=== PATIENT | male | born 1965 | race Caucasian/White ===

== ENCOUNTER 2024-12-19 08:15 | Outpatient (AMB) | payer OTHER, SELFPAY ==
--- NOTE | 2024-12-19 08:28 | A.OFFPC_ITS ---
Vital Signs 12/19/24 08:36 Height 5 ft 9 in Weight 79.832 kg BMI 26.0 BP 130/72 Blood Pressure Location Lt brachial Position Sitting Respiration 16 Pulse 76 Pulse Source Pulse Oximeter Temp 97.1 F Temp Source Temporal Artery Scan Pulse Oximetry (%) 95 Oxygen Delivery Method Room Air Intake Visit Reasons: both hands, cuts, peeling, swelling - see comments Patient Coordinator Required: No Accompanied by: Self / Same As Patient Allergies No Known Allergies Allergy (Verified 12/19/24 08:29) Medication List - Last Reconciled 12/19/24 by SOHAIL Avelar betamethasone valerate 0.1% 1 appl topical BID PRN loratadine (Allergy Relief (loratadine)) 10 mg PO DAILY prednisone 10 mg PO DIRECTED Tobacco use date assessed: 12/19/24 Dental Screening Dental Screen Date: 12/19/24 Did you have a dental visit in the last 12 months?: No Did you have a dental problem in the last 6 months where you did not have access to dental care?: No Was dental information given to patient?: No HPI HPI Comments History of Present Illness Details 59-year-old male with history of hematur ia, history of MRSA, and eczema presents to the office today for evaluation and to establish care. He states he has not been seen by any provider care providers. Eczema-most recently seen at urgent care earlier this year due to dry, cracking, swollen hands R>L. Diagnosed with eczema and given prednisone taper. He states that that did resolve symptoms. However, despite using bsmg-emd-[id number] remedies including lotion, coconut oil, hydrocortisone cream among others, this has returned. It is painful at times and itchy. There is swelling that makes it difficult to close his fist. 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 When he picks up the products, there is moisture that does sleep into the gloves. long ago. History of scaling lesions on the flexor surface of the decubital fossa bilaterally History of MRSA-years ago. Had abscess on his foot x3 requiring I&D. No recurrence. No history of IVDA Abnormal bladder finding-associated with hematuria. Reports he followed with a urologist and had cystoscopy which was negative but unsure what the diagnosis was. He is unsure of the urology practice Concerns: As above Health maintenance: Due for colonoscopy Due for PSA ROS: See HPI EXAM: Constitutional - Awake and Alert, No apparent distress Eyes - PERRL Cardiovascular - S1S2, RRR, No edema Respiratory - Normal lung expansion, Normal respiratory effort, No respiratory distress, CTA bilaterally Extremities - no calf tenderness bilaterally, no swelling Skin - Warm/Dry. Scaling, dry rash of the entirety of the right hand with swelling, similar rash present on the dorsum of the left hand into the proximal aspect of the fingers Neurological - Alert & oriented x3 Psychological - Appropriate affect [facility] Medical History (Updated 12/19/24 @ 09:13 by SOHAIL Avelar) History of MRSA infection Hematuria Eczema of both hands Social History Housing: Apartment Patient Tobacco Use Status: Current everyday Tobacco user Tobacco use type: Cigarette Cigarettes Per Day: 12 Years Smoked: 20 years e-Cigarette/Vaping Use: Never Used service: No Current occupational status: employed Current occupation: [employer] - [employer] Provision Questionnaire AUDIT C Alcohol Use Questionnaire (AUDIT-C) 1. How often do you have a drink containing alcohol?: 2-4 times a month 2. How many drinks containing alcohol do you have on a typical day when you are drinking?: 1 or 2 3. How often do you have six or more drinks on one occasion?: Never Total Score: 2 Physical exam (Primary Care) Vital Signs: Last Vital Signs Temp 97.1 F 12/19/24 08:36 Pulse 76 12/19/24 08:36 Resp 16 12/19/24 08:36 BP 130/72 12/19/24 08:36 Pulse Ox 95 12/19/24 08:36 Oxygen Delivery Method Room Air 12/19/24 08:36 BMI result Body Mass Index 26.0 Tobacco/Smoking Status: Tobacco use Status Tobacco use date assessed 12/19/24 12/19/24 08:30 Patient Tobacco Use Status Current everyday Tobacco 12/19/24 08:39 Tobacco use type Cigarette 12/19/24 08:39 e-Cigarette/Vaping Use Never Used 12/19/24 08:39 Coding Level of Care Code New Pt Level 4 (55839) Complex EM visit Add On G2211 Diagnoses Eczema of both hands L30.9 Hematuria R31.9 Assessment & Plan Assessment & Plan (1) Eczema of both hands: Code(s): L30.9 - Dermatitis, unspecified Category: Medical Plan: E extensive on the bilateral hands limiting dexterity due to swelling. Right- hand dominant. Prednisone taper prescribed. He is also advised to use loratadine on a daily basis and is given betamethasone to use as needed. Referred to Dermatology given recurrence (2) Hematuria: Code(s): R31.9 - Hematuria, unspecified Category: Medical Plan: UA ordered. Unclear diagnosis following cystoscopy at urology office, unable to provide records as patient does not remember the office Plan Follow-up for annual physical exam. Labs to be completed as below. Referred for screening colonoscopy Orders: Orders Complete Blood Count Auto Diff Today L30.9 - Dermatitis, unspecified Lipid Panel Today L30.9 - Dermatitis, unspecified UA and rflx microscopic Today R31.9 - Hematuria, unspecified Basic Metabolic Panel Today L30.9 - Dermatitis, unspecified Liver Panel Today L30.9 - Dermatitis, unspecified Prostate Specific Antigen Today L30.9 - Dermatitis, unspecified Referrals Gastroenterology Referral Z12.11 - Encounter for screening for malignant neoplasm of colon Dermatology Referral L30.9 - Dermatitis, unspecified Medications: New loratadine (Allergy Relief (loratadine)) 10 mg PO DAILY 90 caps 1RF allergy symptoms betamethasone valerate 0.1% 1 appl topical BID PRN 45 grams 2RF skin irritation prednisone see taper instructions; 40 mg Daily x3 days, 30 mg daily x3 days, 20 mg daily x3 days, 10 mg daily x3 days 10 mg PO DIRECTED 30 tabs 0RF
[2024-12-19 08:36] VITALS: BP 130/72; PULSE 76; RESP 16; TEMP 36.2; O2SAT 95; BMI 26.0
== END 2024-12-19 09:07 | disposition home or self-care (01) ==
LOC: HO.HMCHD 08:15
PROVIDERS: Visit Provider Physician Assistant
DX: L30.9 Dermatitis, unspecified (principal); R31.9 Hematuria, unspecified

== ENCOUNTER 2024-12-19 09:15 | Outpatient (REF) | payer OTHER, SELFPAY ==
[2024-12-19 09:35] LABS: MANUAL DIFF FLAG NO
[2024-12-19 09:45] LABS: Hematocrit 42.3 % (42.0-52.0); Hemoglobin 14.4 g/dl (14.0-18.0); Imm Gran Abs Auto 0.02 X10*3/uL (0.00-0.03); Imm Gran Pct Auto 0.3 % (0.0-0.4); Lymphocytes Absolute Auto 2.6 X10*3/uL (1.2-4.9); Mean Corpuscular HGB Conc 34.0 g/dl (31.0-36.0); Mean Corpuscular Hemoglobin 30.7 pg (27.0-33.0); Mean Corpuscular Volume 90.2 fL (80.0-98.0); NRBC Abs Auto 0.000 X10*3/uL (0.0-0.012); NRBC Pct Auto 0.0 /100WBC (0.0-0.2); Platelet Count 220 X10*3/uL (160-400); Red Blood Count 4.69 X10*6/uL (4.60-5.80); White Blood Count 7.2 X10*3/uL (4.8-10.8)
[2024-12-19 10:17] LABS: Alanine Aminotransferase 17 U/L (0-40); Albumin Level 4.4 g/dL (3.5-5.0); Alkaline Phosphatase 60 U/L (39-117); Anion Gap 9 (12-20); Aspartate Amino Transferase 26 U/L (5-37); Blood Urea Nitrogen 19 mg/dL (9-16); Calcium 9.7 mg/dL (8.4-10.2); Carbon Dioxide 28 mmol/L (22-29); Chloride 108 mmol/L (96-108); Cholesterol 219 mg/dL (<200); Estimated Glomerular Filt Rate > 60; HDL Cholesterol 54 mg/dL (>40); Potassium 4.4 mmol/L (3.3-5.1); Sodium 141 mmol/L (135-145); Total Protein 6.6 g/dL (6.5-8.0); Triglycerides 81 mg/dL (<150)
[2024-12-19 10:20] LABS: Appearance Urine Cloudy; Glucose Urine UA Negative (Negative); PH 7.5 (5.0-9.0); Specific Gravity - Urine 1.025 (1.005-1.025)
[2024-12-19 11:12] LABS: Prostate Specific Antigen 0.52 ng/mL (<0.05-4.0)
== END 2024-12-19 09:16 | disposition home or self-care (01) ==
LOC: HO.10HDL 09:15
PROVIDERS: Visit Provider Physician Assistant
DX: Z12.5 Encounter for screening for malignant neoplasm of prostate (principal); L30.9 Dermatitis, unspecified; R31.9 Hematuria, unspecified
CPT/HCPCS: 36415; 80048; 80061; 80076; 81003; 84153; 85025; 99202

== ENCOUNTER → 2025-01-26 09:23 | Outpatient (BNVA) | payer OTHER, SELFPAY | PROVIDERS: Visit Provider Physician Assistant | DX: Z00.00 Encounter for general adult medical examination without abnormal findings (principal); L30.9 Dermatitis, unspecified; E78.5 Hyperlipidemia, unspecified; J45.20 Mild intermittent asthma, uncomplicated; F17.210 Nicotine dependence, cigarettes, uncomplicated; Z13.31 Encounter for screening for depression | CPT/HCPCS: 96127; 99396 ==

== ENCOUNTER → 2025-01-26 09:23 | Outpatient (AMB) | payer OTHER, SELFPAY ==
--- NOTE | 2025-01-26 09:25 | MHC.PC.OV ---
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 He lives at home by himself and is independent with all ADLs. He has cut down on portion sizes and is working on a healthier diet. Denies any consumption of highly processed foods. He continues to smoke 1 pack of cigarettes on a daily basis. Reports consuming a 12 pack of beer 1 day per week. No drug use. 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 Mild/intermittent asthma-albuterol PRN History of hematuria-remote history, seen 9 years ago in urology. Underwent cystoscopy and reports negative findings. Describes what sounds like bladder cilia. Last UA negative for hematuria Hyperlipidemia-LDL 149 at last visit. Has been working on lifestyle changes as noted above Cigarette smoking-smoking 1 pack per day, reports at times when he can not go outside he will only smoked about 4 per day. He is working on quitting Unspecified dermatitis-has been using betamethasone valerate 0.1% with minimal relief. Also using emollient moisturizer. He was given prednisone taper without much effect. They are painful at times and itchy and swollen at times making it difficult to close his fist. 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 It is possible moisture does see been to his gloves. He was referred to Dermatology but states he was not given an appointment until 10/2025 and does not feel he can wait that long due to his discomfort History of MRSA-years ago. Had abscess on his foot x3 requiring I&D. No recurrence. No history of IVDA Eczema-most recently seen at urgent care earlier this year due to dry, cracking, swollen hands R>L. Diagnosed with eczema and given prednisone taper. He states that that did resolve symptoms. However, despite using toqb-pfh-jjtctrr remedies including lotion, coconut oil, hydrocortisone cream among others, this has returned. It is painful at times and itchy. There is swelling that makes it difficult to close his fist. 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 When he picks up the products, there is moisture that does sleep into the gloves. Concerns: As above Health maintenance: Due for colonoscopy Due for PSA Annual DOT physicals Overdue for dental exams Due for eye exams Review of past medical, surgical, family, social history ROS: General: No fevers, malaise, unintentional weight loss HEENT: No blurred vision, diplopia. No sore throat, nasal congestion, rhinorrhea, sinus pain, ear pain. No hearing loss Neck - no adenopathy Cardiovascular: No chest pain, palpitations, or leg edema Respiratory: No shortness of breath, wheezing, cough Breast: No pain, palpable lumps, nipple inversion GI: No dysphagia, odynophagia, globus sensation. No abdominal pain, nausea, vomiting, diarrhea, constipation, melena, hematochezia : No dysuria, hematuria, increased urinary frequency, decreased urinary output. 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 No AH/VH. No SI/HI Skin: No rashes or lesions EXAM: Constitutional - Awake and Alert, No apparent distress Eyes - PERRLA, EOMI. Anicteric Ears - external ears normal, canals clear, TMs intact and pearly kong with good cone of light Nose- septum midline, nares clear, no sinus tenderness Mouth/throat- mucosa moist, tongue and uvula midline, no erythema/edema or tonsillar adenopathy. Neck-trachea midline, thyroid symmetric without palpable nodules, no adenopathy Cardiovascular - S1S2, RRR, No edema Respiratory - Normal lung expansion, Normal respiratory effort, No respiratory distress, CTA bilaterally Gastrointestinal - NT / ND; +BS; No rebound or guarding - No CVA tenderness Extremities - no calf tenderness bilaterally, no swelling Musculoskeletal - Normal inspection, normal ROM Skin - Warm/Dry, no concerning lesions. Scaling, dry rash of the entirety of the right hand with swelling, similar rash present on the dorsum of the left hand into the proximal aspect of the fingers Neurological - Alert & oriented x3, CN II-XII in tact, 5/5 strength BUE and BLE, 2+ patellar reflexes, sensation intact Psychological - Appropriate affect PFSH Medical History HLD (hyperlipidemia) Smoker FH: stomach cancer History of MRSA infection Hematuria Eczema of both hands Surgical History S/P tonsillectomy S/P orchiectomy Status post incision and drainage Family History Father Stomach cancer Social History Housing: Apartment Patient Tobacco Use Status: Current everyday Tobacco user Tobacco use type: Cigarette Cigarettes Per Day: 12 Years Smoked: 20 years e-Cigarette/Vaping Use: Never Used service: No Current occupational status: employed 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 1. Little interest or pleasure in doing things: not at all 2. Feeling down, depressed, or hopeless: not at all 3. Trouble falling or staying asleep, or sleeping too much: not at all 4. Feeling tired or having little energy: not at all 5. Poor appetite or overeating: not at all 6. Feeling bad about yourself - or that you are a failure or have let yourself or your family down: not at all 7. Trouble concentrating on things, such as reading the newspaper or watching television: not at all 8. Moving or speaking so slowly that other people could have noticed. Or the opposite - being so fidgety or restless that you have been moving around a lot more than usual: not at all 9. Thoughts that you would be better off or of hurting yourself in some way: not at all Total score: 0 Depression Screening Interpretation: Negative Depression Screening Done: Yes 19172 - PHQ-9 Billing: Yes Source: Developed by Drs. Finn Morris, Adela Dorsey, Manoj Stovall and colleagues, with an educational jose luis from [employer]. Physical exam (Primary Care) Vital Signs: Last Vital Signs Temp 98.5 F 01/26/25 09:28 Pulse 82 01/26/25 09:28 Resp 18 01/26/25 09:28 BP 118/64 01/26/25 09:28 Pulse Ox 94 01/26/25 09:28 Oxygen Delivery Method Room Air 01/26/25 09:28 BMI result Body Mass Index 26.4 Tobacco/Smoking Status: Tobacco use Status Tobacco use date assessed 12/19/24 01/26/25 09:27 Patient Tobacco Use Status Current everyday Tobacco 01/26/25 09:27 Tobacco use type Cigarette 01/26/25 09:27 e-Cigarette/Vaping Use Never Used 01/26/25 09:27 Depression Screening Interpretation: Negative Coding Level of Care Code Est Pt Prev Care 40-64y(30580) Diagnoses Routine medical exam Z00.00 Eczema of both hands L30.9 Hematuria R31.9 HLD (hyperlipidemia) E78.5 Smoker F17.200 Additional Codes PHQ-9 - 62617 - PHQ-9 Billing: Yes ([id number]) Assessment & Plan Assessment & Plan (1) Routine medical exam: Code(s): Z00.00 - Encounter for general adult medical examination without abnormal findings Category: Medical Plan: 59-year-old male presenting for annual physical exam. Plan as below (2) Eczema of both hands: Code(s): L30.9 - Dermatitis, unspecified Category: Medical Plan: Based on appearance and clinical histroy, most likely atopic dermatitis though there is some scaling that could be treasury representative of psoriasis. Does have exposure to potentially noxious environmental sources. Change betamethasone to dipropionate 0.05% BID. Referral changed to [facility]. Recommend getting on a cancellation list if they are booking far out. Contact for further issues (3) Hematuria: Code(s): R31.9 - Hematuria, unspecified Category: Medical Plan: Resolved. Continue monitoring for symptoms and consider referral back to Urology if needed. (4) HLD (hyperlipidemia): Code(s): E78.5 - Hyperlipidemia, unspecified Category: Medical Plan: Recheck lipid panel in about 2 weeks. Continue with lifestyle modifications including diet low in saturated fats and highly processed foods. Alignment refined sugars and simple carbohydrates. Recommend regular exercise. (5) Smoker: Code(s): F17.200 - Nicotine dependence, unspecified, uncomplicated Category: Social Hx Plan: Counseled on smoking cessation and commended on efforts thus far. Plan Follow-up in the office in 1 year for annual physical exam. Referred to Gastroenterology for both screening colonoscopy and consideration of endoscopy given family history of stomach cancer. Routine screening labs as ordered below Continue following for annual skin exams and use sun protection Annual eye exams Schedule dental exams Counseled on alcohol consumptions Wear seat belt in car Recommend regular exercise and healthy diet Follow up in 1 year for annual physical Orders: Orders Lipid Panel Today E78.5 - Hyperlipidemia, unspecified Referrals Gastroenterology Referral E78.5 - Hyperlipidemia, unspecified, F17.200 - Nicotine dependence, unspecified, uncomplicated, Z12.11 - Encounter for screening for malignant neoplasm of colon, Z80.0 - Family history of malignant neoplasm of digestive organs Dermatology Referral L30.9 - Dermatitis, unspecified Medications: New betamethasone dipropionate 0.05% 1 appl topical BID PRN 45 grams 2RF skin irritation Discontinued betamethasone valerate 0.1% Discontinued Reason: Doctor's Order 1 appl topical BID PRN 45 grams 2RF skin irritation
[2025-01-26 09:28] VITALS: BP 118/64; PULSE 82; RESP 18; TEMP 36.9; O2SAT 94; BMI 26.4
== END ==
PROVIDERS: PCP Physician Assistant; Visit Provider Physician Assistant
DX: Z00.00 Encounter for general adult medical examination without abnormal findings (principal); L30.9 Dermatitis, unspecified; R31.9 Hematuria, unspecified; E78.5 Hyperlipidemia, unspecified; F17.200 Nicotine dependence, unspecified, uncomplicated